=== PATIENT | male | born 1965 | race Two or more races ===

== ENCOUNTER 2017-11-24 12:46 | Inpatient (IN) | payer OTHER ==
[~2017-11-24] VITALS: Ht 165.1 cm; Wt 88.5 kg
[~2017-11-24 12:46] MED LIST: ALAVERT10 MG; ASPIR 8181 MG; BIAXIN500 MG PO; CEFDINIR300 MG PO; CELEBREX100 MG; CIPRO100 MG PO; CIPRO500 MG PO; CLONAZEPAM0.5 MG PO; COZAAR25 MG PO; DICLOFENAC POTA50 MG PO; ETODOLAC500 MG PO; FLAGYL500MG PO; GASTRINEX CAPSU1 CAP PO; IMDUR30 MG; KLONOPIN0.25 MG/TA; LEVALBUTER0.63 MG/3; LEVAQUIN500 MG; LEVAQUIN750 MG PO; LIPITOR20 MG; LOSARTAN-HCTZ1 EAC2; MEDROL4 MG PO; MEDROLPACK PO; MUCINEX1200 MG/BO PO; MUCINEX600 MG PO; NORFLEX100 MG; PLAVIX75 MG; PREDNISONA PO; PROTONIX20 MG PO; PROVENTIL HFA6.7 GM IH; PROVENTIL2 MG; RAMIPRIL2.5 MG; RELAFEN500 MG; SINGULAIR10 MG; THEOPHYLLINE400 MG; TOPROL XL25 MG; TOPROL XL50 M1; TUSSI PRES-B L120 M1 PO; TUSSI-PRES LIQ118 ML PO; TUSSIONEX PENNKI5 ML PO; XOPENEX0.63 MG/3 IH; ZITHROMAX500 MG PO; [UNRECOGNIZED DRUG - OTHER]; [UNRECOGNIZED DRUG - OTHER]
[2017-12-03] MEDS ORDERED: NEBUSAL4 M1 IH (14:43)
[2017-12-03] MEDS ORDERED: TESSALON PERLE100 M1 PO (14:43)
== END 2017-12-03 16:48 | disposition home or self-care (01) | DRG 202 ==
LOC: ER 12:46 → SEC-K 11-25 10:12 → MEDI 11-25 10:12
PROC: 3E0F7GC Introduction of Other Therapeutic Substance into Respiratory Tract, Via Natural or Artificial Opening (ICD-10-PCS; principal; 2017-11-25)
DX: J45.42 Moderate persistent asthma with status asthmaticus (principal); J44.1 Chronic obstructive pulmonary disease with (acute) exacerbation; J44.0 Chronic obstructive pulmonary disease with (acute) lower respiratory infection; G47.33 Obstructive sleep apnea (adult) (pediatric); I10 Essential (primary) hypertension; I25.10 Atherosclerotic heart disease of native coronary artery without angina pectoris; Z98.61 Coronary angioplasty status; J20.9 Acute bronchitis, unspecified

== ENCOUNTER 2018-01-22 20:09 | Emergency (ER) | payer OTHER ==
[~2018-01-22] VITALS: Ht 165.1 cm; Wt 95.3 kg
[~2018-01-22 20:09] MED LIST changes: +NEBUSAL4 M1 IH; +TESSALON PERLE100 M1 PO
== END 2018-01-22 20:40 | disposition home or self-care (01) ==
LOC: ER 20:09
DX: H60.92 Unspecified otitis externa, left ear (principal)

== ENCOUNTER 2018-02-27 10:05 | Inpatient (IN) | payer OTHER ==
[~2018-02-27] VITALS: Ht 165.1 cm; Wt 90.7 kg
[2018-02-27] MEDS ORDERED: PREDNISOLO20 MG/5 ML (10:28)
== END 2018-03-08 16:53 | disposition home or self-care (01) | DRG 202 ==
LOC: ER 10:05 → MEDI 23:33
PROC: 3E0F7GC Introduction of Other Therapeutic Substance into Respiratory Tract, Via Natural or Artificial Opening (ICD-10-PCS; principal; 2018-02-27)
PROC: 4A033R1 Measurement of Arterial Saturation, Peripheral, Percutaneous Approach (ICD-10-PCS; 2018-02-27)
DX: J45.42 Moderate persistent asthma with status asthmaticus (principal); J44.1 Chronic obstructive pulmonary disease with (acute) exacerbation; G47.33 Obstructive sleep apnea (adult) (pediatric); I25.10 Atherosclerotic heart disease of native coronary artery without angina pectoris; I10 Essential (primary) hypertension; Z98.61 Coronary angioplasty status

== ENCOUNTER 2018-09-04 13:49 | Inpatient (IN) | payer OTHER ==
[~2018-09-04] VITALS: Ht 165.1 cm; Wt 90.7 kg
[~2018-09-04 13:49] MED LIST changes: +PREDNISOLO20 MG/5 ML
[2018-09-14] MEDS ORDERED: ISOSORBIDE MONO30 MG PO (18:32)
[2018-09-14] MEDS ORDERED: CLOPIDOGREL BIS75 MG PO (18:32)
[2018-09-14] MEDS ORDERED: CARDIZEM60 MG PO (18:32)
[2018-09-14] MEDS ORDERED: ASA-EC81 MG PO (18:32)
[2018-09-14] MEDS ORDERED: FLONASE16 GM NASAL (18:32)
[2018-09-14] MEDS ORDERED: MONTELUKAST SOD10 MG PO (18:32)
[2018-09-14] MEDS ORDERED: LOSARTAN-HCTZ1 EAC2 PO (18:32)
== END 2018-09-14 18:45 | DRG 202 ==
LOC: ER 13:49 → SEC-K 09-05 13:53 → MEDI 09-05 13:53 → MEDJ 09-09 11:21
PROC: 3E0F7GC Introduction of Other Therapeutic Substance into Respiratory Tract, Via Natural or Artificial Opening (ICD-10-PCS; principal; 2018-09-05)
PROC: BW24ZZZ Computerized Tomography (CT Scan) of Chest and Abdomen (ICD-10-PCS; 2018-09-07)
DX: J45.42 Moderate persistent asthma with status asthmaticus (principal); J90 Pleural effusion, not elsewhere classified; J44.1 Chronic obstructive pulmonary disease with (acute) exacerbation; J98.11 Atelectasis; R09.02 Hypoxemia; I10 Essential (primary) hypertension; I25.10 Atherosclerotic heart disease of native coronary artery without angina pectoris; H60.8X2 Other otitis externa, left ear; E66.9 Obesity, unspecified; F32.9 Major depressive disorder, single episode, unspecified; F41.9 Anxiety disorder, unspecified; G47.33 Obstructive sleep apnea (adult) (pediatric); G47.00 Insomnia, unspecified; Z98.61 Coronary angioplasty status

== ENCOUNTER 2018-12-22 11:02 | Emergency (ER) | payer OTHER ==
[~2018-12-22] VITALS: Ht 165.1 cm; Wt 93.4 kg
[~2018-12-22 11:02] MED LIST changes: +ASA-EC81 MG PO; +CARDIZEM60 MG PO; +CLOPIDOGREL BIS75 MG PO; +FLONASE16 GM NASAL; +ISOSORBIDE MONO30 MG PO; +LOSARTAN-HCTZ1 EAC2 PO; +MONTELUKAST SOD10 MG PO
== END 2018-12-22 21:52 | disposition home or self-care (01) ==
LOC: ER 11:02
DX: J45.998 Other asthma (principal); H60.8X2 Other otitis externa, left ear

== ENCOUNTER 2018-12-26 11:15 | Inpatient (IN) | payer OTHER ==
[~2018-12-26] VITALS: Ht 165.1 cm; Wt 93.4 kg
--- NOTE | 2018-12-26 11:53 | NUR ---
SE RECIBE PTE ALERTA Y ORIENTADO X3,REFIERE TENER ASMA ,CEFALEA ,FIEBRE ,TOS PERSISTENTE.
--- NOTE | 2018-12-26 12:34 | NUR ---
SE ORIENTA A PACIENTE SOBRE ORDENES MEDICAS. SE ADMINISTRAN MEDICAMENTOS, CANALIZA PACIENTE Y COLECTAN MUESTRAS DE LABORATORIO ORDENADAS BAJO MEDIDAS ASEPTICAS. PENDIENTE A RESULTADOS DE LABORATORIO PARA RE-EVALUACION MEDICA. TRATAMIENTO RESPIRATORIO NOTIFICADO A MR JOYNER.
--- NOTE | 2018-12-26 15:03 | NUR ---
PTE EN DESCANSO,EN COMPANIA DE FAMILIAR,EN CAMA CON BARANDAS ELEVADAS,EN COMPANIA DE FAMILIAR.PTE CON VENTURY MASK @ 35%,NO PRESENTA DIFICULTAD RESP,AREA DE VENOPUNCION PATENTE Y ZANE DE EDEMA,PTE EN ESPERA DE EVALUACION DE DR JETER.
[2019-01-01] MEDS ORDERED: Z-TUSS AC LIQU473 ML PO (11:50)
== END 2019-01-01 13:55 | disposition home or self-care (01) | DRG 202 ==
LOC: ER 11:15 → MEDI 22:13 → SEC-K 22:13 → MEDI 23:38 → MEDJ 23:38 → MEDI 01-01 13:55
PROVIDERS: ADMIT Internal Medicine
PROC: 8E0ZXY6 Isolation (ICD-10-PCS; principal; 2018-12-26)
PROC: 4A033R1 Measurement of Arterial Saturation, Peripheral, Percutaneous Approach (ICD-10-PCS; 2018-12-26)
PROC: 3E0F7GC Introduction of Other Therapeutic Substance into Respiratory Tract, Via Natural or Artificial Opening (ICD-10-PCS; 2018-12-26)
PROC: BB24ZZZ Computerized Tomography (CT Scan) of Bilateral Lungs (ICD-10-PCS; 2018-12-28)
DX: J45.52 Severe persistent asthma with status asthmaticus (principal); J44.1 Chronic obstructive pulmonary disease with (acute) exacerbation; J06.9 Acute upper respiratory infection, unspecified; I11.9 Hypertensive heart disease without heart failure; I25.10 Atherosclerotic heart disease of native coronary artery without angina pectoris; R09.02 Hypoxemia; J09.X2 Influenza due to identified novel influenza A virus with other respiratory manifestations

== ENCOUNTER 2019-02-25 09:38 | Emergency (ER) | payer OTHER ==
[~2019-02-25] VITALS: Ht 165.1 cm; Wt 92.5 kg
[~2019-02-25 09:38] MED LIST changes: +Z-TUSS AC LIQU473 ML PO
== END 2019-02-25 14:27 | disposition home or self-care (01) ==
LOC: ER 09:38
DX: N40.0 Benign prostatic hyperplasia without lower urinary tract symptoms (principal); N50.812 Left testicular pain

== ENCOUNTER 2019-03-16 09:16 | Emergency (ER) | payer OTHER ==
[~2019-03-16] VITALS: Ht 170.2 cm; Wt 83.9 kg
== END 2019-03-16 13:12 | disposition home or self-care (01) ==
LOC: ER 09:16
DX: N30.80 Other cystitis without hematuria (principal); N39.0 Urinary tract infection, site not specified

== ENCOUNTER 2019-07-13 14:04 | Emergency (ER) | payer OTHER ==
[~2019-07-13] VITALS: Ht 165.1 cm; Wt 94.3 kg
[2019-07-13] MEDS ORDERED: CARDIZEM PO (14:58)
== END 2019-07-13 19:27 | disposition home or self-care (01) ==
LOC: ER 14:04
DX: R09.81 Nasal congestion (principal)

== ENCOUNTER 2019-09-03 15:47 | Emergency (ER) | payer OTHER ==
[~2019-09-03] VITALS: Ht 165.1 cm; Wt 95.3 kg
[~2019-09-03 15:47] MED LIST changes: +CARDIZEM PO
== END 2019-09-03 19:33 | disposition home or self-care (01) ==
LOC: ER 15:47
DX: J45.998 Other asthma (principal)

== ENCOUNTER 2019-11-09 11:12 | Emergency (ER) | payer OTHER ==
[~2019-11-09] VITALS: Ht 165.1 cm; Wt 97.5 kg
== END 2019-11-09 15:28 | disposition home or self-care (01) ==
LOC: ER 11:12
DX: K25.9 Gastric ulcer, unspecified as acute or chronic, without hemorrhage or perforation (principal); K21.9 Gastro-esophageal reflux disease without esophagitis

== ENCOUNTER 2019-12-28 10:49 | Emergency (ER) | payer OTHER ==
[~2019-12-28] VITALS: Ht 165.1 cm; Wt 95.3 kg
[2019-12-28] MEDS ORDERED: ASTEPRO (11:25)
[2019-12-28] MEDS ORDERED: ALEGRA (11:25)
[2019-12-28] MEDS ORDERED: [UNRECOGNIZED DRUG - OTHER] (11:26)
[2019-12-28] MEDS ORDERED: HYZAAR 100-251 EACH PO (11:26)
[2019-12-28] MEDS ORDERED: ZITHROMAX500 MG PO (18:11)
[2019-12-28] MEDS ORDERED: XOPENEX CO1.25 MG/0. IH (18:11)
[2019-12-28] MEDS ORDERED: IPRATROPIU0.2 MG/1 M IH (18:11)
[2019-12-28] MEDS ORDERED: MUCINEX DM ER1 EAC1 PO (18:11)
[2019-12-28] MEDS ORDERED: MEDROLPACK PO (18:11)
[2019-12-28] MEDS ORDERED: BUDESONIDE0.5 MG/2 M IH (18:14)
== END 2019-12-28 18:56 | disposition home or self-care (01) ==
LOC: ER 10:49
DX: J45.901 Unspecified asthma with (acute) exacerbation (principal); B96.0 Mycoplasma pneumoniae [M. pneumoniae] as the cause of diseases classified elsewhere; J06.9 Acute upper respiratory infection, unspecified

== ENCOUNTER 2020-05-05 17:41 | Emergency (ER) | payer OTHER ==
[~2020-05-05] VITALS: Ht 165.1 cm; Wt 95.3 kg
[~2020-05-05 17:41] MED LIST changes: +ALEGRA; +ASTEPRO; +BUDESONIDE0.5 MG/2 M IH; +HYZAAR 100-251 EACH PO; +IPRATROPIU0.2 MG/1 M IH; +MUCINEX DM ER1 EAC1 PO; +XOPENEX CO1.25 MG/0. IH; +[UNRECOGNIZED DRUG - OTHER]
[2020-05-06] MEDS ORDERED: TESSALON PERLE100 M1 PO (11:14)
[2020-05-06] MEDS ORDERED: INTESTINEX680 M1 PO (11:14)
[2020-05-06] MEDS ORDERED: MEDROLPACK PO (11:14)
[2020-05-06] MEDS ORDERED: BACTRIM DS TAB1 EACH PO (11:14)
== END 2020-05-06 11:57 | disposition home or self-care (01) ==
LOC: ER 17:41
DX: J45.998 Other asthma (principal)

== ENCOUNTER 2020-06-21 10:53 | Emergency (ER) | payer OTHER ==
[~2020-06-21] VITALS: Ht 165.1 cm; Wt 95.3 kg
[~2020-06-21 10:53] MED LIST changes: +BACTRIM DS TAB1 EACH PO; +INTESTINEX680 M1 PO
== END 2020-06-21 16:20 | disposition home or self-care (01) ==
LOC: ER 10:53
DX: J45.998 Other asthma (principal); J32.0 Chronic maxillary sinusitis; Z03.818 Encounter for observation for suspected exposure to other biological agents ruled out

== ENCOUNTER 2020-07-02 10:55 | Outpatient (CLI) | payer OTHER | END 2020-07-02 12:00 | disposition home or self-care (01) | LOC: OFIC 805 10:55 | PROVIDERS: ATTEND Otolaryngology | DX: J32.8 Other chronic sinusitis (principal); R09.82 Postnasal drip; G47.33 Obstructive sleep apnea (adult) (pediatric); G50.1 Atypical facial pain; R09.81 Nasal congestion ==

== ENCOUNTER → 2020-07-18 | Outpatient (CLI) | payer OTHER | END | disposition home or self-care (01) | LOC: OFIC 805 11:00 | PROVIDERS: ATTEND Otolaryngology | DX: R09.82 Postnasal drip (principal); G47.33 Obstructive sleep apnea (adult) (pediatric); R09.81 Nasal congestion; J32.8 Other chronic sinusitis; G50.1 Atypical facial pain ==

== ENCOUNTER → 2020-08-13 | Outpatient (CLI) | payer OTHER | END | disposition home or self-care (01) | LOC: OFIC 805 11:15 | PROVIDERS: ATTEND Otolaryngology | DX: J34.2 Deviated nasal septum (principal); R09.82 Postnasal drip; R09.81 Nasal congestion; J32.8 Other chronic sinusitis; J34.89 Other specified disorders of nose and nasal sinuses ==

== ENCOUNTER 2020-08-17 13:46 | Emergency (ER) | payer OTHER ==
[~2020-08-17] VITALS: Ht 165.1 cm; Wt 97.5 kg
== END 2020-08-17 17:35 | disposition home or self-care (01) ==
LOC: ER 13:46
DX: J30.89 Other allergic rhinitis (principal)

== ENCOUNTER 2020-08-24 10:36 | Inpatient (IN) | payer OTHER ==
[~2020-08-24] VITALS: Ht 165.1 cm; Wt 97.5 kg
--- NOTE | 2020-08-24 10:53 | NUR ---
SE RECIBE PACIENTE ALERTA, ORIENTADO X 3 ESFERAS REFIERE TENER ASMA, TOS PRODUCTIVA Y SENTIR DIFICULTAD PARA RESPIRAR DESDE RUBY POR LA MANANA, SE UBICA EN ASMA UNIT.
--- NOTE | 2020-08-24 12:58 | NUR ---
PTE ALERTA Y ORIENTADO X3, CON BUEN PATRON RESPIRATORIO Y SIGNOS VITALES ESTABLES, SE ADMINISTRAN MEDICAMENTOS, SE CANALIZA CON ANGIO #[id number] PATENTE Y ZANE DE EDEMA Y SE DAGMAR MUESTRAS BAJJO MEDIDAS ASEPTICAS. SE MARCELINO EN SILLA HASTA SER REEVALUADO.
--- NOTE | 2020-08-24 16:10 | NUR ---
SE RECIBE PTE DEL TURNO ANTERIOR, ALERTA Y ORIENTADO X 3 ESFERAS, UBICADO EN BUTACA EN AREA DE AU. SE OBSERVA CON BUEN PATRON RESPIRATORIO Y PIEL TIBIA AL TACTO. H/L PATENTE Y ZANE DE EDEMA O ERITEMA. PENDIENTE A RE EVALUACION MEDICA.
--- NOTE | 2020-08-24 22:17 | NUR ---
TERAPIAS RESPIRATORIAS NOTIFICADAS A ANYA.
[2020-08-30] MEDS ORDERED: CEFDINIR300 MG PO ×2 (10:13)
== END 2020-08-30 13:43 | disposition home or self-care (01) | DRG 202 ==
LOC: ER 10:36 → SURG 23:28 → MEDJ 08-28 16:19 → MEDI 08-28 16:19
PROVIDERS: ADMIT Internal Medicine; ATTEND Internal Medicine
PROC: BB24ZZZ Computerized Tomography (CT Scan) of Bilateral Lungs (ICD-10-PCS; principal; 2020-08-24)
PROC: 3E0F7GC Introduction of Other Therapeutic Substance into Respiratory Tract, Via Natural or Artificial Opening (ICD-10-PCS; 2020-08-24)
PROC: 4A033R1 Measurement of Arterial Saturation, Peripheral, Percutaneous Approach (ICD-10-PCS; 2020-08-24)
DX: J45.51 Severe persistent asthma with (acute) exacerbation (principal); J98.11 Atelectasis; I10 Essential (primary) hypertension; I25.10 Atherosclerotic heart disease of native coronary artery without angina pectoris; Z20.828 Contact with and (suspected) exposure to other viral communicable diseases; G47.33 Obstructive sleep apnea (adult) (pediatric); Z98.61 Coronary angioplasty status; Z79.52 Long term (current) use of systemic steroids

== ENCOUNTER → 2020-09-10 | Day surgery (SDC) | payer OTHER | END | disposition home or self-care (01) | LOC: OFIC 805 12:06 | PROVIDERS: ATTEND Otolaryngology | DX: J34.2 Deviated nasal septum (principal); R09.82 Postnasal drip; G47.33 Obstructive sleep apnea (adult) (pediatric); J34.89 Other specified disorders of nose and nasal sinuses ==

== ENCOUNTER 2020-09-29 15:26 | Inpatient (IN) | payer OTHER ==
[~2020-09-29] VITALS: Ht 165.1 cm; Wt 97.5 kg
--- NOTE | 2020-09-29 15:35 | NUR ---
PTE REFIERE ASMA SE DAGMAR S/V YS EUBIAC EN AREA DE OBSERVACION
--- NOTE | 2020-09-29 16:59 | NUR ---
PACIENTE ALERTA Y ORIENTADO EN DANDRE DINORA ESFERAS. SE ORIENTA A PACIENTE SOBRE PROCEDIMIENTO Y TX, REFIERE ENTENDER, SE EXTRAE MUESTRAS DE LABORATORIO CON MEDIDAS ASEPTICAS Y SE ADMINISTRA MEDICAMENTOS [place] ORDEN MEDICA.
--- NOTE | 2020-09-29 23:19 | NUR ---
SE RECIBE PACIENTE EN ARLYN CON MEDIDAS DE SEGURIDAD. LUCE A LERTA CONSCIENTE Y ORIENTADO X3. H/L PATENTE. AREA ZANE DE EDEMA Y ENROJECIMIENTO. PTE EN ESPERA DE SER VISTO POR MEDICINA INTERNA EN LA MANANA.
--- NOTE | 2020-09-30 07:09 | NUR ---
PACIENTE ALERTA Y ORIENTADO EN DANDRE DINORA ESFERAS, PRESENTA BUEN PATRON RESPIRATORIO Y ZANE DE DOLOR. SALINE LOCK EN BRAZO LT, PATENTE Y ZANE DE S/S DE FLEBITIS E INFILTRACION, CON CANULA NASAL A 3 LT. PENDIENTE EVALUACION DE MEDICINA INTERNA CON E JETER POR ESTADO ASMATICO.
== END 2020-10-05 16:09 | disposition home or self-care (01) | DRG 202 ==
LOC: ER 15:26 → MEDJ 09-30 09:22 → SEC-K 09-30 09:22 → MEDJ 09-30 11:56
PROVIDERS: ADMIT Internal Medicine; ATTEND Internal Medicine
DX: J45.51 Severe persistent asthma with (acute) exacerbation (principal); J44.1 Chronic obstructive pulmonary disease with (acute) exacerbation; R65.10 Systemic inflammatory response syndrome (SIRS) of non-infectious origin without acute organ dysfunction; J98.11 Atelectasis; J44.0 Chronic obstructive pulmonary disease with (acute) lower respiratory infection; Z79.52 Long term (current) use of systemic steroids; R09.02 Hypoxemia; G47.33 Obstructive sleep apnea (adult) (pediatric); J30.9 Allergic rhinitis, unspecified

== ENCOUNTER 2020-12-14 15:25 | Emergency (ER) | payer OTHER ==
[~2020-12-14] VITALS: Ht 165.1 cm; Wt 97.5 kg
== END 2020-12-14 23:23 | disposition home or self-care (01) ==
LOC: ER 15:25
DX: J45.998 Other asthma (principal); R06.02 Shortness of breath

== ENCOUNTER 2021-03-01 12:45 | Emergency (ER) | payer OTHER ==
[~2021-03-01] VITALS: Ht 165.1 cm; Wt 97.5 kg
[2021-03-01] MEDS ORDERED: TAMS0.4C (12:58)
[2021-03-01] MEDS ORDERED: CARDIZEM60 MG (12:58)
[2021-03-01] MEDS ORDERED: NORVASC5 MG (13:00)
== END 2021-03-01 15:30 | disposition home or self-care (01) ==
LOC: ER 12:45
DX: J45.998 Other asthma (principal)

== ENCOUNTER 2021-05-05 14:23 | Outpatient (CLI) | payer OTHER ==
[~2021-05-05 14:23] MED LIST changes: +CARDIZEM60 MG; +NORVASC5 MG; +TAMS0.4C
== END 2021-05-08 07:03 | disposition home or self-care (01) ==
LOC: TOM 14:23
PROVIDERS: ATTEND Internal Medicine Pulmonary Disease
DX: J44.1 Chronic obstructive pulmonary disease with (acute) exacerbation (principal); R91.8 Other nonspecific abnormal finding of lung field; R91.1 Solitary pulmonary nodule

== ENCOUNTER 2021-06-07 14:39 | Emergency (ER) | payer OTHER ==
[~2021-06-07] VITALS: Ht 165.1 cm; Wt 104.3 kg
[2021-06-07] MEDS ORDERED: COZAAR50 MG PO (15:04)
== END 2021-06-07 20:23 | disposition home or self-care (01) ==
LOC: ER 14:39
DX: J45.998 Other asthma (principal); K57.30 Diverticulosis of large intestine without perforation or abscess without bleeding

== ENCOUNTER 2021-07-18 07:50 | Day surgery (SDC) | payer OTHER ==
[~2021-07-18 07:50] MED LIST changes: +COZAAR50 MG PO
== END 2021-07-18 12:55 | disposition home or self-care (01) ==
LOC: AMB-ENDOS 07:50
PROVIDERS: ATTEND Colon & Rectal Surgery
DX: D12.0 Benign neoplasm of cecum (principal); K64.1 Second degree hemorrhoids; Z20.822 Contact with and (suspected) exposure to COVID-19

== ENCOUNTER 2021-09-28 14:19 | Emergency (ER) | payer OTHER ==
[~2021-09-28] VITALS: Ht 165.1 cm; Wt 95.3 kg
[2021-09-28] MEDS ORDERED: ZYRTEC10 M3 PO (20:59)
== END 2021-09-28 21:11 | disposition home or self-care (01) ==
LOC: ER 14:19
DX: J20.9 Acute bronchitis, unspecified (principal); J45.998 Other asthma; J45.901 Unspecified asthma with (acute) exacerbation; Z03.818 Encounter for observation for suspected exposure to other biological agents ruled out

== ENCOUNTER 2022-02-13 15:14 | Emergency (ER) | payer OTHER ==
[~2022-02-13] VITALS: Ht 165.1 cm; Wt 104.3 kg
[~2022-02-13 15:14] MED LIST changes: +ZYRTEC10 M3 PO
[2022-02-13] MEDS ORDERED: CARDIZEM (15:49)
[2022-02-13] MEDS ORDERED: BUDESONIDE0.25 MG/1 (15:50)
[2022-02-13] MEDS ORDERED: XOPENEX0.63 MG/3 (15:50)
[2022-02-13] MEDS ORDERED: PREDNISONE10 M2 ×2 (15:50→15:51)
[2022-02-13] MEDS ORDERED: MEDROLPACK PO (21:53)
[2022-02-13] MEDS ORDERED: AMOX-CLAV 875-1 EACH PO (21:54)
== END 2022-02-13 22:10 | disposition home or self-care (01) ==
LOC: ER 15:14
DX: J45.909 Unspecified asthma, uncomplicated (principal); Z20.822 Contact with and (suspected) exposure to COVID-19

== ENCOUNTER 2022-03-03 17:24 | Inpatient (IN) | payer OTHER ==
[~2022-03-03] VITALS: Ht 165.1 cm; Wt 104.3 kg
[~2022-03-03 17:24] MED LIST changes: +AMOX-CLAV 875-1 EACH PO; +BUDESONIDE0.25 MG/1; +CARDIZEM; +PREDNISONE10 M2; +XOPENEX0.63 MG/3
--- NOTE | 2022-03-03 17:49 | NUR ---
SE RECIBE PTE MAXULINO ALERTA Y ORIENTADO X3,REFIERE DIFICULTAD RESPIRATORIA, DESDE HACE [place],ANNE REALIZANDO TRATMIENTO EN EL HOGAR SIN MEJORIA Y SE NOTIFICA A .
--- NOTE | 2022-03-03 18:07 | NUR ---
PTE MASCULINO ALERTA Y ORIENTADO EN LAS DINORA ESFERAS ES EVALUADO POR . RN PAUL ORIENTA SOBRE ORDENES DE TX REFIERE COMPRENDER. COLECTA MUESTRAS DE LABORATORIOS Y CANALIZA VENA BAJO MEDIDAS ASEPTICAS. ADMINISTRA MEDICAMENTOS, BAJO MEDIDAS ASEPTICAS. SE NOTIFICAN ABGS Y TERAPIAS A MRSRADHA. SE COLOCA CANULA NASAL [place] ORDEN MEDICA.
--- NOTE | 2022-03-03 23:40 | NUR ---
PACIENTE ALERTA Y ORIENTADO X3. EN CAMA CON BARANDAS ELEVADAS. H/L PATENTE Y ZANE DE EDEMA Y ERITEMA. SE NOTIFICA A PERSONAL DE TERAPIA RESPIRATORIA LAS TERAPIAS ORDENADAS POR MD. SE MANTIENE BAJO OBSERVACION POR CAMBIOS SIGNIFICATIVOS.
--- NOTE | 2022-03-04 03:02 | NUR ---
MISS. PERALES ADMINISTRA MEDICAMENTO ORDENADO POR
--- NOTE | 2022-03-04 07:40 | NUR ---
PACIENTE EN ESPERA DE CONSULTA CON DR. JETER PARA EVALUACION MEDICA. SE MANTIENE A PACIENTE EN MONITOREO NAVA.
--- NOTE | 2022-03-04 08:00 | NUR ---
TERAPIAS NOTIFICADAS A OAKES
[2022-03-05] MEDS ORDERED: DILTIAZEM ER90 MG (08:55)
== END 2022-03-13 18:07 | disposition home or self-care (01) | DRG 202 ==
LOC: ER 17:24 → MEDI 03-04 10:24
PROVIDERS: ADMIT Internal Medicine; ATTEND Internal Medicine
PROC: BW24ZZZ Computerized Tomography (CT Scan) of Chest and Abdomen (ICD-10-PCS; principal; 2022-03-05)
DX: J45.51 Severe persistent asthma with (acute) exacerbation (principal); J98.11 Atelectasis; R65.10 Systemic inflammatory response syndrome (SIRS) of non-infectious origin without acute organ dysfunction; R06.02 Shortness of breath; D72.828 Other elevated white blood cell count; E66.01 Morbid (severe) obesity due to excess calories; I10 Essential (primary) hypertension; Z20.822 Contact with and (suspected) exposure to COVID-19

== ENCOUNTER → 2022-07-14 | Emergency (ER) | payer OTHER ==
[~2022-07-14] VITALS: Ht 165.1 cm; Wt 104.3 kg
[~2022-07-14] MED LIST changes: +ADULT LOW DOSE81 M1 PO; +DILTIAZEM ER90 MG; +NORVASC2.5 M1 PO; +PLAVIX75 MG PO; +TAMS0.4C PO
== END | disposition home or self-care (01) ==
LOC: ER 10:34
DX: H92.02 Otalgia, left ear (principal); I11.9 Hypertensive heart disease without heart failure; J45.909 Unspecified asthma, uncomplicated; Z88.8 Allergy status to other drugs, medicaments and biological substances

== ENCOUNTER 2022-11-02 14:25 | Emergency (ER) | payer OTHER ==
[~2022-11-02] VITALS: Ht 165.1 cm; Wt 106.6 kg
[2022-11-02] MEDS ORDERED: ZOFRAN8 MG PO (19:36)
== END 2022-11-02 20:15 | disposition home or self-care (01) ==
LOC: ER 14:25
DX: R07.9 Chest pain, unspecified (principal); I25.2 Old myocardial infarction; I10 Essential (primary) hypertension; J45.909 Unspecified asthma, uncomplicated; F32.9 Major depressive disorder, single episode, unspecified; G47.30 Sleep apnea, unspecified; F41.9 Anxiety disorder, unspecified; K44.9 Diaphragmatic hernia without obstruction or gangrene; R00.0 Tachycardia, unspecified; Z88.8 Allergy status to other drugs, medicaments and biological substances; K57.92 Diverticulitis of intestine, part unspecified, without perforation or abscess without bleeding

== ENCOUNTER 2022-11-14 12:04 | Emergency (ER) | payer OTHER ==
[~2022-11-14] VITALS: Ht 165.1 cm; Wt 106.6 kg
[~2022-11-14 12:04] MED LIST changes: +ZOFRAN8 MG PO
[2022-11-14] MEDS ORDERED: FLONASE16 GM NS (12:58)
== END 2022-11-14 18:59 | disposition home or self-care (01) ==
LOC: ER 12:04
DX: J45.909 Unspecified asthma, uncomplicated (principal); Z88.8 Allergy status to other drugs, medicaments and biological substances; Z20.822 Contact with and (suspected) exposure to COVID-19

== ENCOUNTER 2023-03-13 11:56 | Emergency (ER) | payer OTHER ==
[~2023-03-13] VITALS: Ht 165.1 cm; Wt 99.8 kg
[~2023-03-13 11:56] MED LIST changes: +ACID CONTROLLER20 MG; +CARDIZEM120 MG PO; +CLOTRIMAZOLE10 MG; +DILTIAZEM HCL90 MG; +ESCITALOPRAM OX20 MG; +FEXOFENADINE HC60 MG; +FLONASE16 GM; +FLONASE16 GM NS; +GAS-X ULTRA ST180 MG; +LANSOPRAZOLE30 MG; +NABUMETONE750 MG; +NORVASC5 MG PO; +OPTIVE EYE DROP15 ML; +PROAIR HFA8.5 GM; +QUETIAPINE FUM100 MG; +SINGULAIR10 MG PO; +TRELEGY ELLIPT1 EACH
[2023-03-13] MEDS ORDERED: SINGULAIR10 MG (12:51)
== END 2023-03-13 14:59 ==
LOC: ER 11:56
DX: J45.909 Unspecified asthma, uncomplicated (principal); G47.30 Sleep apnea, unspecified; F32.9 Major depressive disorder, single episode, unspecified; Z88.8 Allergy status to other drugs, medicaments and biological substances

== ENCOUNTER 2023-07-12 11:26 | Emergency (ER) | payer OTHER ==
[~2023-07-12] VITALS: Ht 152.4 cm; Wt 104.3 kg
[2023-07-12] MEDS ORDERED: AMOX-CLAV 875-1 EAC1 PO (16:58)
[2023-07-12] MEDS ORDERED: ATROVENT HFA12.9 GM IH (16:58)
[2023-07-12] MEDS ORDERED: XOPENEX HFA15 GM IH (16:58)
[2023-07-12] MEDS ORDERED: MUCINEX FAST-M180 M2 PO (16:58)
[2023-07-12] MEDS ORDERED: IPRAT-ALBUT 0.5-3 ML IH (17:09)
[2023-07-12] MEDS ORDERED: MEDROLPACK PO (17:09)
[2023-07-12] MEDS ORDERED: XOPENEX CO1.25 MG/0. IH (17:09)
== END 2023-07-12 14:19 | disposition home or self-care (01) ==
LOC: ER 11:26
PROVIDERS: Nurse Practitioner Family
DX: J45.909 Unspecified asthma, uncomplicated (principal); Z20.822 Contact with and (suspected) exposure to COVID-19

== ENCOUNTER 2023-08-07 10:19 | Inpatient (IN) | payer OTHER ==
[~2023-08-07] VITALS: Ht 175.3 cm; Wt 230.0 kg
[~2023-08-07 10:19] MED LIST changes: +AMOX-CLAV 875-1 EAC1 PO; +ATROVENT HFA12.9 GM IH; +IPRAT-ALBUT 0.5-3 ML IH; +MUCINEX FAST-M180 M2 PO; +XOPENEX HFA15 GM IH
--- NOTE | 2023-08-07 10:42 | NUR ---
PACIENTE ALERTA Y ORIENTADO X 3. REFIERE DIF RESP DESDE HACEN [address] SUGEY UN MES QUE NO LE MEJORA EL ASMA.
[2023-08-07] MEDS ORDERED: TAMS0.4C PO (10:51)
[2023-08-07 11:43] LABS: ABG PH 7.443 (7.35-7.45); ABG pCO2 34.7 mmHg (35-45); BASE EXCESS -0.3 mmol/l; BICARBONATE 23.2 mmol/l (23-25); SaO2 91.4 %; Tco2 24.2 mmol/l
[2023-08-07 11:47] LABS: ABG PO2 59.3 mmHg (80-100); allen test SATISFACTORY; o2 21 %; puncture site RADIAL RIGHT
[2023-08-07 12:01] LABS: HEMATOCRIT 42.7 % (39.0-48.0); MEAN CELL VOLUME 82.7 fL (80.0-100.00); MEAN CORPUSCULAR HEMOGLOBIN 27.2 pg (27.00-32.0); MEAN CORPUSCULAR HGB CONC 32.8 g/dl (32.0-36.0); PLATELET COUNT 313 K/uL (150-450); RED BLOOD COUNT 5.17 M/uL (4.00-6.00); RED CELL DISTRIBUTION WIDTH 14.5 % (11.5-14.5)
--- NOTE | 2023-08-07 12:01 | NUR ---
SE ORIENTA PTE SOBRE EL TRATAMIENTO ORDENAO POR EL DR VIZCAINO PTE ALERTA Y ORIENTADO POR 3 SE REALIZAN MUESTRAS DE LABORATORIO Y SE ADMINISTRAN MEDICAMETO [place] ORDENADO SE NOTIFICA A ESCALANTE TERAPIAS Y ABG
[2023-08-07 12:40] LABS: CALCIUM 8.7 mg/dL (8.5-10.1); CREATININE SERUM 1.03 mg/dL (0.70-1.30); GFR 74.17; POTASSIUM 3.6 mEq/L (3.5-5.1)
[2023-08-07 14:47] LABS: INR 1.01; PARTIAL THROMBOPLASTIN TIME 27.3 SECONDS (22.0-34.0); PROTHROMBIN TIME 10.6 SECONDS (9.0-11.5)
[2023-08-07 17:18] LABS: ABG PH 7.398 (7.35-7.45); ABG PO2 77.2 mmHg (80-100); ABG pCO2 30.3 mmHg (35-45); BASE EXCESS -5.2 mmol/l; BICARBONATE 18.3 mmol/l (23-25); Tco2 19.2 mmol/l
[2023-08-07 17:44] LABS: allen test SATISFACTORY; o2 21 %; puncture site RADIAL RIGHT
[2023-08-07 19:17] LABS: LDH 361 U/L (87-241); PHOSPHOKINASE CREATININE 65 U/L (39-308)
[2023-08-07 19:35] LABS: CKMB < 1.0 NG/ML (0.5-3.6)
[2023-08-08 08:14] LABS: CKMB 1.4 NG/ML (0.5-3.6)
[2023-08-08 08:42] LABS: INR 1.02; PARTIAL THROMBOPLASTIN TIME 27.2 SECONDS (22.0-34.0); PROTHROMBIN TIME 10.7 SECONDS (9.0-11.5)
[2023-08-08 08:53] LABS: ALBUMIN 3.2 gm/dL (3.4-5.0); BILIRUBIN TOTAL 0.3 mg/dL (0.3-1.2); BILIRUBIN,CONJUGATED 0.11 mg/dL (0.0-0.2); BILIRUBIN,UNCONJUGATED 0.19 mg/dL (0.0-0.6); CALCIUM 8.8 mg/dL (8.5-10.1); CHOL HDL RATIO 3.1 (0-5.0); CREATININE SERUM 1.2 mg/dL (0.70-1.30); GFR 62.18; GLOBULINA 3.3 G/DL (2.4-3.5); POTASSIUM 3.8 mEq/L (3.5-5.1); TOTAL PROTEIN 6.5 gm/dL (6.4-8.2)
[2023-08-08 09:03] LABS: C-REACTIVE PROTEIN 2.7 MG/DL (0.00-0.29)
[2023-08-08 09:10] LABS: HEMATOCRIT 41.9 % (39.0-48.0); HEMOGLOBIN 13.8 g/dL (13-16.00); MEAN CELL VOLUME 83.7 fL (80.0-100.00); MEAN CORPUSCULAR HEMOGLOBIN 27.5 pg (27.00-32.0); MEAN CORPUSCULAR HGB CONC 32.9 g/dl (32.0-36.0); PLATELET COUNT 331 K/uL (150-450); RED BLOOD COUNT 5.01 M/uL (4.00-6.00); RED CELL DISTRIBUTION WIDTH 14.6 % (11.5-14.5)
[2023-08-08 10:34] LABS: ERYTHROCYTE SEDIMENTATION RATE 37 mm/hr
[2023-08-08 10:38] LABS: PH,URINE 5.5 (5.0-8.0); URINE APPEARANCE Clear; URINE BILIRRUBIN Negative (NEGATIVE); URINE BLOOD Negative; URINE COLOR Yellow; URINE LEUKOCYTE Negative; URINE NITRATE Negative; URINE PROTEIN Negative (NEGATIVE); URINE UROBILINOGEN 0.2 E.U./dl
[2023-08-08 10:42] LABS: URINE BACTERIA 6.2 uL (0.0-1933); URINE EPITHELIAL CELLS 5.3 uL (0.0-38.8); URINE WBC 4.3 uL (0.0-23.2)
[2023-08-08 11:48] LABS: URINE GLUCOSE 500 MG/DL (NEGATIVE)
[2023-08-08 11:49] LABS: URINE RBC 1.7 uL (0.0-20.8)
[2023-08-10 07:05] LABS: HEMATOCRIT 36.6 % (39.0-48.0); HEMOGLOBIN 12.4 g/dL (13-16.00); MEAN CELL VOLUME 82.7 fL (80.0-100.00); MEAN CORPUSCULAR HGB CONC 33.8 g/dl (32.0-36.0); PLATELET COUNT 284 K/uL (150-450); RED BLOOD COUNT 4.43 M/uL (4.00-6.00); RED CELL DISTRIBUTION WIDTH 14.7 % (11.5-14.5)
[2023-08-10 07:11] LABS: ALBUMIN 2.7 gm/dL (3.4-5.0); BILIRUBIN TOTAL 0.14 mg/dL (0.3-1.2); CALCIUM 8.3 mg/dL (8.5-10.1); CREATININE SERUM 0.91 mg/dL (0.70-1.30); GFR 85.57; GLOBULINA 2.9 G/DL (2.4-3.5); MAGNESIUM 2.2 mg/dL (1.8-2.4); PHOSPHOROUS 3.5 mg/dL (2.5-4.9); POTASSIUM 4.52 mEq/L (3.5-5.1); TOTAL PROTEIN 5.6 gm/dL (6.4-8.2)
[2023-08-12 08:22] LABS: HEMATOCRIT 39.3 % (39.0-48.0); HEMOGLOBIN 13.4 g/dL (13-16.00); MEAN CELL VOLUME 82.3 fL (80.0-100.00); MEAN CORPUSCULAR HGB CONC 34.1 g/dl (32.0-36.0); PLATELET COUNT 314 K/uL (150-450); RED BLOOD COUNT 4.78 M/uL (4.00-6.00); RED CELL DISTRIBUTION WIDTH 14.9 % (11.5-14.5)
[2023-08-12 08:46] LABS: BILIRUBIN TOTAL 0.29 mg/dL (0.3-1.2); CALCIUM 8.7 mg/dL (8.5-10.1); CREATININE SERUM 1.08 mg/dL (0.70-1.30); GFR 70.22; GLOBULINA 2.9 G/DL (2.4-3.5); MAGNESIUM 2.4 mg/dL (1.8-2.4); PHOSPHOROUS 3.7 mg/dL (2.5-4.9); POTASSIUM 4.06 mEq/L (3.5-5.1); TOTAL PROTEIN 5.9 gm/dL (6.4-8.2)
[2023-08-14 08:16] LABS: ALBUMIN 2.4 gm/dL (3.4-5.0); BILIRUBIN TOTAL 0.33 mg/dL (0.3-1.2); CALCIUM 7.8 mg/dL (8.5-10.1); CREATININE SERUM 0.86 mg/dL (0.70-1.30); GFR 91.34; GLOBULINA 2.4 G/DL (2.4-3.5); POTASSIUM 4.15 mEq/L (3.5-5.1); TOTAL PROTEIN 4.8 gm/dL (6.4-8.2)
[2023-08-14 09:18] LABS: HEMATOCRIT 35.7 % (39.0-48.0); HEMOGLOBIN 11.9 g/dL (13-16.00); MEAN CELL VOLUME 82.8 fL (80.0-100.00); MEAN CORPUSCULAR HEMOGLOBIN 27.5 pg (27.00-32.0); MEAN CORPUSCULAR HGB CONC 33.2 g/dl (32.0-36.0); PLATELET COUNT 254 K/uL (150-450); RED BLOOD COUNT 4.31 M/uL (4.00-6.00); RED CELL DISTRIBUTION WIDTH 14.7 % (11.5-14.5)
[2023-08-16 06:41] LABS: HEMATOCRIT 36.9 % (39.0-48.0); HEMOGLOBIN 12.7 g/dL (13-16.00); MEAN CELL VOLUME 81.5 fL (80.0-100.00); MEAN CORPUSCULAR HGB CONC 34.4 g/dl (32.0-36.0); PLATELET COUNT 245 K/uL (150-450); RED BLOOD COUNT 4.53 M/uL (4.00-6.00); RED CELL DISTRIBUTION WIDTH 15.1 % (11.5-14.5)
[2023-08-16 07:13] LABS: CALCIUM 8.2 mg/dL (8.5-10.1); CREATININE SERUM 0.9 mg/dL (0.70-1.30); GFR 86.67; POTASSIUM 4.22 mEq/L (3.5-5.1)
[2023-08-16] MEDS ORDERED: MEDROLPACK PO (17:12)
== END 2023-08-16 17:46 | disposition home or self-care (01) | DRG 202 ==
LOC: ER 10:19 → SURH 18:00
PROVIDERS: General Practice; Internal Medicine; ADMIT Internal Medicine; ATTEND Internal Medicine
PROC: BB24ZZZ Computerized Tomography (CT Scan) of Bilateral Lungs (ICD-10-PCS; 2023-08-07)
PROC: 3E0F7GC Introduction of Other Therapeutic Substance into Respiratory Tract, Via Natural or Artificial Opening (ICD-10-PCS; 2023-08-07)
PROC: 4A12X4Z Monitoring of Cardiac Electrical Activity, External Approach (ICD-10-PCS; principal; 2023-08-08)
PROC: 02HV33Z Insertion of Infusion Device into Superior Vena Cava, Percutaneous Approach (ICD-10-PCS; 2023-08-13)
DX: J45.51 Severe persistent asthma with (acute) exacerbation (principal); J90 Pleural effusion, not elsewhere classified; J98.11 Atelectasis; R09.02 Hypoxemia; G47.33 Obstructive sleep apnea (adult) (pediatric); I10 Essential (primary) hypertension

== ENCOUNTER 2023-12-11 20:09 | Emergency (ER) | payer OTHER ==
[~2023-12-11] VITALS: Ht 165.1 cm; Wt 98.9 kg
[2023-12-11] MEDS ORDERED: DILTIAZEM HCL120 MG PO (20:30)
[2023-12-11] MEDS ORDERED: ECOTRIN81 MG PO (20:31)
[2023-12-11] MEDS ORDERED: NORVASC5 MG PO (20:31)
[2023-12-11] MEDS ORDERED: METHYLPREDNISOLONE SOD SUCC 125 MG VIAL IV STA (20:59)
[2023-12-11] MEDS ORDERED: GUAIFENESIN 200 MG/10 ML BLIST.PACK PO STA (21:00)
[2023-12-11 21:59] LABS: HEMATOCRIT 40.9 % (39.0-48.0); HEMOGLOBIN 14.1 g/dL (13-16.00); MEAN CORPUSCULAR HEMOGLOBIN 28.6 pg (27.00-32.0); MEAN CORPUSCULAR HGB CONC 34.5 g/dl (32.0-36.0); PLATELET COUNT 287 K/uL (150-450); RED BLOOD COUNT 4.93 M/uL (4.00-6.00); RED CELL DISTRIBUTION WIDTH 14.9 % (11.5-14.5)
== END 2023-12-11 22:53 | disposition home or self-care (01) ==
LOC: ER 20:09
PROVIDERS: General Practice
DX: J45.909 Unspecified asthma, uncomplicated (principal); I25.10 Atherosclerotic heart disease of native coronary artery without angina pectoris; I10 Essential (primary) hypertension; Z88.8 Allergy status to other drugs, medicaments and biological substances; Z20.822 Contact with and (suspected) exposure to COVID-19
CPT/HCPCS: 36415; 96365; 99282; J2930

== ENCOUNTER 2023-12-17 10:58 | Emergency (ER) | payer OTHER ==
[~2023-12-17] VITALS: Ht 165.1 cm; Wt 98.9 kg
[~2023-12-17 10:58] MED LIST changes: +DILTIAZEM HCL120 MG PO; +ECOTRIN81 MG PO
[2023-12-17] MEDS ORDERED: ZITHROMAX500 MG PO (11:17)
[2023-12-17 12:28] LABS: ABG PH 7.416 (7.35-7.45); ABG PO2 86.5 mmHg (80-100); ABG pCO2 35.2 mmHg (35-45); BASE EXCESS -1.7 mmol/l; BICARBONATE 22.1 mmol/l (23-25); SaO2 96.7 %; Tco2 23.2 mmol/l; allen test SATISFACTORY; o2 21 %; puncture site RADIAL RIGHT
[2023-12-17 12:52] LABS: HEMATOCRIT 42.7 % (39.0-48.0); HEMOGLOBIN 14.9 g/dL (13-16.00); MEAN CELL VOLUME 82.4 fL (80.0-100.00); MEAN CORPUSCULAR HEMOGLOBIN 28.7 pg (27.00-32.0); MEAN CORPUSCULAR HGB CONC 34.8 g/dl (32.0-36.0); PLATELET COUNT 358 K/uL (150-450); RED BLOOD COUNT 5.19 M/uL (4.00-6.00); RED CELL DISTRIBUTION WIDTH 14.7 % (11.5-14.5)
[2023-12-17 13:52] LABS: CALCIUM 8.8 mg/dL (8.5-10.1); CREATININE SERUM 0.88 mg/dL (0.70-1.30); GFR 88.64; POTASSIUM 3.69 mEq/L (3.5-5.1)
[2023-12-17] MEDS ORDERED: BUDESONIDE 0.5 MG/2 ML AMPUL.NEB IH STA (14:04)
[2023-12-17] MEDS ORDERED: IPRATROPIUM BROMIDE 0.5 MG/2.5 ML AMPUL.NEB IH STA (14:05)
[2023-12-17] MEDS ORDERED: LEVALBUTEROL HCL 1.25 MG/3 ML SOLUTION IH SCH (14:15)
[2023-12-17] MEDS ORDERED: levoFLOXacin IN DEXTROSE 5 % 5 MG/ML PIGGYBAG IV STA (15:13)
[2023-12-17] MEDS ORDERED: METHYLPREDNISOLONE SOD SUCC 125 MG VIAL IV STA (15:14)
== END 2023-12-17 18:19 | disposition home or self-care (01) ==
LOC: ER 10:58
PROVIDERS: General Practice
DX: J45.909 Unspecified asthma, uncomplicated (principal); Z20.822 Contact with and (suspected) exposure to COVID-19; Z88.1 Allergy status to other antibiotic agents
CPT/HCPCS: 36415; 71046; 82803; 94640; 96365; 99283; J1956; J2930

== ENCOUNTER 2024-01-19 18:04 | Emergency (ER) | payer OTHER ==
[~2024-01-19] VITALS: Ht 165.1 cm; Wt 98.4 kg
[2024-01-19] MEDS ORDERED: NITROGLYCERIN 0.4 MG/HR PATCH.TD24 TD STA (21:45)
[2024-01-19 22:36] LABS: HEMATOCRIT 44.6 % (39.0-48.0); HEMOGLOBIN 15.4 g/dL (13-16.00); MEAN CELL VOLUME 80.6 fL (80.0-100.00); MEAN CORPUSCULAR HEMOGLOBIN 27.8 pg (27.00-32.0); MEAN CORPUSCULAR HGB CONC 34.5 g/dl (32.0-36.0); PLATELET COUNT 361 K/uL (150-450); RED BLOOD COUNT 5.54 M/uL (4.00-6.00); RED CELL DISTRIBUTION WIDTH 15.2 % (11.5-14.5)
[2024-01-19 23:39] LABS: ALBUMIN 3.5 gm/dL (3.4-5.0); BILIRUBIN TOTAL 0.31 mg/dL (0.3-1.2); CALCIUM 8.7 mg/dL (8.5-10.1); CREATININE SERUM 1.22 mg/dL (0.70-1.30); GFR 60.8; GLOBULINA 3.1 G/DL (2.4-3.5); TOTAL PROTEIN 6.6 gm/dL (6.4-8.2)
[2024-01-20] MEDS ORDERED: KETOROLAC TROMETHAMINE 60 MG VIAL IM STA (00:45)
== END 2024-01-20 00:59 | disposition home or self-care (01) ==
LOC: ER 18:04
DX: M94.0 Chondrocostal junction syndrome [Tietze] (principal); R00.2 Palpitations; Z88.8 Allergy status to other drugs, medicaments and biological substances; I10 Essential (primary) hypertension; K44.9 Diaphragmatic hernia without obstruction or gangrene; I25.2 Old myocardial infarction
CPT/HCPCS: 36415; 93005; 96372; 99283; J1885

== ENCOUNTER 2024-11-03 07:15 | Inpatient (IN) | payer OTHER ==
[~2024-11-03] VITALS: Ht 165.1 cm; Wt 108.9 kg
[~2024-11-03 07:15] MED LIST changes: +DERMACINRX THE135 GM
[2024-11-03] MEDS ORDERED: CLONAZEPAM0.5 M1 PO (07:51)
[2024-11-03] MEDS ORDERED: IPRATROPIUM/ALBUTEROL SULFATE 3 ML AMPUL.NEB IH ONE ×2 (09:15→10:04)
[2024-11-03] MEDS ORDERED: ACETAMINOPHEN 500 MG GEL..CAP PO ONE (09:15)
[2024-11-03 09:58] LABS: HEMATOCRIT 45.4 % (39.0-48.0); HEMOGLOBIN 15.3 g/dL (13-16.00); MEAN CELL VOLUME 81.5 fL (80.0-100.00); MEAN CORPUSCULAR HEMOGLOBIN 27.4 pg (27.00-32.0); MEAN CORPUSCULAR HGB CONC 33.7 g/dl (32.0-36.0); PLATELET COUNT 335 K/uL (150-450); RED BLOOD COUNT 5.57 M/uL (4.00-6.00); RED CELL DISTRIBUTION WIDTH 15.1 % (11.5-14.5)
[2024-11-03 11:16] LABS: ALBUMIN 3.3 gm/dL (3.4-5.0); BILIRUBIN TOTAL 0.63 mg/dL (0.3-1.2); CALCIUM 8.6 mg/dL (8.5-10.1); CREATININE SERUM 0.99 mg/dL (0.70-1.30); GFR 77.11; POTASSIUM 3.62 mEq/L (3.5-5.1); TOTAL PROTEIN 6.3 gm/dL (6.4-8.2)
[2024-11-03] MEDS ORDERED: BENZONATATE 100 MG CAPSULE PO ONE (11:30)
[2024-11-03] MEDS ORDERED: PREDNISONE 20 MG TABLET PO ONE (11:30)
[2024-11-03] MEDS ORDERED: ALBUTEROL SULFATE 3 ML/2.5 MG AMPUL.NEB IH ONE ×3 (11:45→13:30)
[2024-11-03] MEDS ORDERED: METHYLPREDNISOLONE SOD SUCC 125 MG VIAL IV ONE (14:00)
[2024-11-03] MEDS ORDERED: METHYLPREDNISOLONE SOD SUCC 125 MG VIAL ONE (14:16)
[2024-11-03 15:06] LABS: ABG PH 7.389 (7.35-7.45); ABG pCO2 37.1 mmHg (35-45)
[2024-11-03 15:07] LABS: ABG PO2 86.4 mmHg (80-100); BASE EXCESS -2.5 mmol/l; BICARBONATE 21.9 mmol/l (23-25); SaO2 96.3 %; allen test SATISFACTORY; o2 28 %; puncture site RADIAL RIGHT
[2024-11-03 15:11] LABS: ABG PH 7.417 (7.35-7.45); ABG pCO2 37.5 mmHg (35-45)
[2024-11-03 15:12] LABS: ABG PO2 54.2 mmHg (80-100); BASE EXCESS -0.6 mmol/l; BICARBONATE 23.6 mmol/l (23-25); SaO2 88.3 %; Tco2 24.8 mmol/l; allen test SATISFACTORY; o2 21 %; puncture site RADIAL RIGHT
[2024-11-03] MEDS ORDERED: IPRATROPIUM BROMIDE 0.5 MG/2.5 ML AMPUL.NEB IH SCH (17:18)
[2024-11-03] MEDS ORDERED: LEVALBUTEROL HCL 1.25 MG/3 ML SOLUTION IH SCH (17:19)
[2024-11-03] MEDS ORDERED: GUAIFEN/DEXTROMETHORPHAN/PE 10 ML BLIST.PACK PO SCH (17:19)
[2024-11-03] MEDS ORDERED: MONTELUKAST SODIUM 10 MG TABLET PO SCH (17:20)
[2024-11-03] MEDS ORDERED: ACETAMINOPHEN 500 MG GEL..CAP PO PRN (17:30)
[2024-11-03] MEDS ORDERED: IPRATROPIUM BROMIDE 0.5 MG/2.5 ML AMPUL.NEB IH ONE (17:30)
[2024-11-03] MEDS ORDERED: LEVALBUTEROL HCL 0.63 MG/3 ML SOLUTION IH ONE (17:31)
[2024-11-03] MEDS ORDERED: CEFTRIAXONE SODIUM 2,000 MG in 0.9 % SODIUM CHLORIDE 100 ML IV SCH (17:59)
[2024-11-03] MEDS ORDERED: AZITHROMYCIN 500 MG in DEXTROSE 5 % IN WATER 250 ML IV SCH (17:59)
[2024-11-03] MEDS ORDERED: METHYLPREDNISOLONE SOD SUCC 40 MG VIAL IV SCH (18:00)
[2024-11-03] MEDS ORDERED: 0.9 % SODIUM CHLORIDE 1,000 ML IV SCH (18:15)
[2024-11-03] MEDS ORDERED: METHYLPREDNISOLONE SOD SUCC 40 MG VIAL ONE (18:27)
[2024-11-03] MEDS ORDERED: GUAIFEN/DEXTROMETHORPHAN/PE 10 ML BLIST.PACK PO ONE (18:28)
[2024-11-03] MEDS ORDERED: AZITHROMYCIN 500 MG VIAL IV ONE (18:28)
[2024-11-03] MEDS ORDERED: CEFTRIAXONE SODIUM 2,000 MG VIAL ONE (18:28)
[2024-11-04 01:00] VITALS: BP 143/78; O2SAT 96
[2024-11-04 08:06] VITALS: BP 141/77; O2SAT 96
[2024-11-04 08:24] LABS: INR 1.03; PARTIAL THROMBOPLASTIN TIME 27.6 SECONDS (22.0-34.0); PROTHROMBIN TIME 11.2 SECONDS (9.0-11.5)
[2024-11-04] MEDS ORDERED: FAMOTIDINE/PF 20 MG in 0.9 % SODIUM CHLORIDE 8 ML IV PUSH SCH (09:00)
[2024-11-04] MEDS ORDERED: TAMSULOSIN HCL 0.4 MG CAP PO SCH (09:00)
[2024-11-04] MEDS ORDERED: CLOPIDOGREL BISULFATE 75 MG TABLET PO SCH (09:00)
[2024-11-04] MEDS ORDERED: ENOXAPARIN SODIUM 40 MG/0.4 ML SYRINGE SUBCUTANEO SCH (09:00)
[2024-11-04] MEDS ORDERED: LOSARTAN POTASSIUM 50 MG TABLET PO SCH (09:00)
[2024-11-04] MEDS ORDERED: DILTIAZEM HCL 120 MG TABLET PO SCH (09:00)
[2024-11-04] MEDS ORDERED: FAMOTIDINE/PF 20 MG/2 ML VIAL ONE (10:55)
[2024-11-04] MEDS ORDERED: AZITHROMYCIN 500 MG VIAL IV STA (12:49)
[2024-11-04] MEDS ORDERED: AZITHROMYCIN 500 MG VIAL IV ONE (12:54)
[2024-11-04 17:07] VITALS: BP 132/77
[2024-11-05 01:44] VITALS: BP 109/64; O2SAT 97
[2024-11-05 07:38] LABS: HEMATOCRIT 40.8 % (39.0-48.0); HEMOGLOBIN 13.7 g/dL (13-16.00); MEAN CELL VOLUME 81.2 fL (80.0-100.00); MEAN CORPUSCULAR HEMOGLOBIN 27.3 pg (27.00-32.0); MEAN CORPUSCULAR HGB CONC 33.6 g/dl (32.0-36.0); PLATELET COUNT 309 K/uL (150-450); RED BLOOD COUNT 5.03 M/uL (4.00-6.00); RED CELL DISTRIBUTION WIDTH 15.5 % (11.5-14.5)
[2024-11-05 07:39] VITALS: BP 151/78; O2SAT 98
[2024-11-05 08:17] LABS: ALBUMIN 2.9 gm/dL (3.4-5.0); BILIRUBIN TOTAL 0.36 mg/dL (0.3-1.2); CALCIUM 8.6 mg/dL (8.5-10.1); CREATININE SERUM 0.99 mg/dL (0.70-1.30); GFR 77.11; GLOBULINA 2.9 G/DL (2.4-3.5); MAGNESIUM 2.1 mg/dL (1.8-2.4); PHOSPHOROUS 3.2 mg/dL (2.5-4.9); POTASSIUM 4.25 mEq/L (3.5-5.1); TOTAL PROTEIN 5.8 gm/dL (6.4-8.2)
[2024-11-05] MEDS ORDERED: AZITHROMYCIN 500 MG VIAL IV ONE (08:19)
[2024-11-05 08:25] LABS: C-REACTIVE PROTEIN 1.61 MG/DL (0.00-0.29)
[2024-11-05] MEDS ORDERED: DILTIAZEM HCL 120 MG CAP.SR.24H PO SCH (09:00)
[2024-11-05] MEDS ORDERED: AZITHROMYCIN 500 MG VIAL IV SCH (09:00)
[2024-11-05 16:52] VITALS: BP 130/73
[2024-11-06] MEDS ORDERED: TRAMADOL HCL 50 MG TABLET PO ONE (00:15)
[2024-11-06] MEDS ORDERED: TRAMADOL HCL 50 MG TABLET PO PRN (00:15)
[2024-11-06 02:55] VITALS: BP 130/77; O2SAT 98
[2024-11-06 06:27] LABS: HEMATOCRIT 39.7 % (39.0-48.0); HEMOGLOBIN 13.5 g/dL (13-16.00); MEAN CELL VOLUME 80.9 fL (80.0-100.00); MEAN CORPUSCULAR HEMOGLOBIN 27.4 pg (27.00-32.0); MEAN CORPUSCULAR HGB CONC 33.9 g/dl (32.0-36.0); PLATELET COUNT 276 K/uL (150-450); RED BLOOD COUNT 4.91 M/uL (4.00-6.00); RED CELL DISTRIBUTION WIDTH 15.4 % (11.5-14.5)
[2024-11-06 08:13] VITALS: BP 160/85
[2024-11-06 10:25] LABS: ABG PH 7.394 (7.35-7.45); ABG PO2 75.1 mmHg (80-100); ABG pCO2 37.2 mmHg (35-45); BASE EXCESS -2.2 mmol/l; BICARBONATE 22.2 mmol/l (23-25); SaO2 94.7 %; Tco2 23.4 mmol/l
[2024-11-06 10:27] LABS: allen test SATISFACTORY; o2 21 %; puncture site RADIAL RIGHT
[2024-11-06] MEDS ORDERED: 0.9 % SODIUM CHLORIDE 10 ML VIAL IJ ONE (11:45)
[2024-11-06 16:06] VITALS: BP 138/68; O2SAT 100
[2024-11-07] MEDS ORDERED: LEVALBUTEROL HCL 1.25 MG/3 ML SOLUTION IH SCH (02:00)
[2024-11-07] MEDS ORDERED: IPRATROPIUM BROMIDE 0.5 MG/2.5 ML AMPUL.NEB IH SCH (02:00)
[2024-11-07 02:53] VITALS: BP 153/78; O2SAT 94
[2024-11-07] MEDS ORDERED: METHYLPREDNISOLONE SOD SUCC 40 MG VIAL IV SCH (05:00)
[2024-11-07] MEDS ORDERED: AZITHROMYCIN 500 MG VIAL IV ONE (07:46)
[2024-11-07 08:46] VITALS: BP 148/79; O2SAT 94
[2024-11-07] MEDS ORDERED: FAMOtidine 20 MG TABLET PO SCH (09:00)
[2024-11-07 15:00] VITALS: BP 140/77; O2SAT 97
[2024-11-07] MEDS ORDERED: BENZONATATE 200 MG CAPSULE PO SCH (17:00)
== END 2024-11-07 18:38 | disposition home or self-care (01) | DRG 202 ==
LOC: ER 07:17 → MEDI 20:20
PROVIDERS: General Practice; Internal Medicine Infectious Disease; ADMIT Internal Medicine; ATTEND Internal Medicine
PROC: BW24ZZZ Computerized Tomography (CT Scan) of Chest and Abdomen (ICD-10-PCS; principal; 2024-11-04)
DX: J45.901 Unspecified asthma with (acute) exacerbation (principal); R65.10 Systemic inflammatory response syndrome (SIRS) of non-infectious origin without acute organ dysfunction; R09.02 Hypoxemia; J20.9 Acute bronchitis, unspecified; G47.30 Sleep apnea, unspecified

== ENCOUNTER 2025-02-10 11:18 | Emergency (ER) | payer OTHER ==
[~2025-02-10] VITALS: Ht 165.1 cm; Wt 96.6 kg
[~2025-02-10 11:18] MED LIST changes: +CLONAZEPAM0.5 M1 PO
[2025-02-10] MEDS ORDERED: ATORVASTATIN CA80 MG PO (12:06)
[2025-02-10] MEDS ORDERED: PEPCID AC10 MG PO (12:07)
[2025-02-10] MEDS ORDERED: CARVEDILOL ER40 MG PO (12:07)
[2025-02-10 13:51] LABS: HEMATOCRIT 41.2 % (39.0-48.0); HEMOGLOBIN 13.9 g/dL (13-16.00); MEAN CELL VOLUME 85.2 fL (80.0-100.00); MEAN CORPUSCULAR HEMOGLOBIN 28.7 pg (27.00-32.0); MEAN CORPUSCULAR HGB CONC 33.7 g/dl (32.0-36.0); PLATELET COUNT 275 K/uL (150-450); RED BLOOD COUNT 4.84 M/uL (4.00-6.00); RED CELL DISTRIBUTION WIDTH 16.9 % (11.5-14.5)
[2025-02-10 13:58] LABS: CALCIUM 9.3 mg/dL (8.5-10.1); CREATININE SERUM 0.9 mg/dL (0.70-1.30); GFR 86.07; POTASSIUM 4.98 mEq/L (3.5-5.1)
[2025-02-10 15:17] LABS: PH,URINE 5.5 (5.0-8.0); URINE APPEARANCE Clear; URINE BILIRRUBIN Negative (NEGATIVE); URINE BLOOD Negative; URINE COLOR Yellow; URINE GLUCOSE Negative (NEGATIVE); URINE KETONE Negative (NEGATIVE); URINE LEUKOCYTE Small; URINE NITRATE Negative; URINE PROTEIN Negative (NEGATIVE); URINE UROBILINOGEN 0.2 E.U./dl
[2025-02-10 15:22] LABS: URINE BACTERIA 30.5 uL (0.0-1933); URINE EPITHELIAL CELLS 8.7 uL (0.0-38.8); URINE WBC 65.2 uL (0.0-23.2)
[2025-02-10 15:33] LABS: URINE RBC 0.4 uL (0.0-20.8)
[2025-02-10] MEDS ORDERED: levoFLOXacin IN DEXTROSE 5 % 500MG/100ML PIGGYBAG IV ONE ×2 (15:45→15:57)
[2025-02-10] MEDS ORDERED: CIPRO500 MG PO (23:05)
== END 2025-02-10 23:35 | disposition home or self-care (01) ==
LOC: ER 11:19
PROVIDERS: General Practice
DX: N39.0 Urinary tract infection, site not specified (principal); M54.50 Low back pain, unspecified; I10 Essential (primary) hypertension; Z88.1 Allergy status to other antibiotic agents
CPT/HCPCS: 36415; 74177; 74240; 96365; 99284; J1956; Q9965

== ENCOUNTER → 2025-02-13 | Emergency (ER) | payer OTHER ==
[~2025-02-13] MED LIST changes: +ATORVASTATIN CA80 MG PO; +CARVEDILOL ER40 MG PO; +PEPCID AC10 MG PO
== END | disposition left against medical advice (07) ==
LOC: ER 10:55
DX: N39.0 Urinary tract infection, site not specified (principal)

== ENCOUNTER 2025-06-09 11:04 | Emergency (ER) | payer OTHER ==
[~2025-06-09] VITALS: Ht 165.1 cm; Wt 99.8 kg
[2025-06-09] MEDS ORDERED: BRILINTA90 MG PO (11:42)
[2025-06-09] MEDS ORDERED: GUAIFENESIN/DEXTROMETHORPHAN 100MG/10ML BLIST.PACK PO ONE (13:30)
[2025-06-09] MEDS ORDERED: METHYLPREDNISOLONE SOD SUCC 125 MG VIAL IM ONE (13:30)
[2025-06-09 14:15] LABS: BASO % 0.6 % (0.1-1.2); EOS # 0.43 (0.04-0.54); EOS % 3.3 % (0.7-7.0); LYMPH # 1.79 (1.18-3.74); LYMPH % 13.9 % (19.3-53.1); MEAN PLATELET VOLUME 9.20 fl (9.4-12.4); MONO # 1.09 (0.24-0.82); MONO % 8.4 % (4.7-12.5); NEUT # 9.32 (1.56-6.13); NEUT % 72.2 % (34.0-71.1); RED CELL DISTRIBUTION WIDTH 14.3 % (11.6-14.4)
== END 2025-06-09 15:12 ==
LOC: ER 11:04
PROVIDERS: General Practice
DX: J32.9 Chronic sinusitis, unspecified (principal); J00 Acute nasopharyngitis [common cold]; I10 Essential (primary) hypertension; Z88.1 Allergy status to other antibiotic agents
CPT/HCPCS: 36415; 96372; 99282; J3490